=== PATIENT | female | born 1995 | race African-American/Black ===

== ENCOUNTER 2019-04-20 15:30 | Emergency (ER) | payer MEDICAID ==
[~2019-04-20] VITALS: Ht 154.9 cm; Wt 67.6 kg
[2019-04-20 15:35] VITALS: Ht 154.9 cm; Wt 67.6 kg
[2019-04-20 18:08] VITALS: BP 127/71
== END 2019-04-20 18:08 | disposition home or self-care (01) ==
LOC: ED 15:30
DX: O21.9 Vomiting of pregnancy, unspecified (principal); Z3A.01 Less than 8 weeks gestation of pregnancy